=== PATIENT | female | born 2000 | race Two or more races ===

== ENCOUNTER 2020-09-21 14:40 | Observation (INO) | payer MEDICAID ==
[~2020-09-21] VITALS: Ht 160 cm; Wt 94.3 kg
[2020-09-21] MEDS ORDERED: PREN-96 PO (14:56)
[2020-09-21] MEDS ORDERED: FERR-20 PO (14:56)
== END 2020-09-21 15:34 | disposition home or self-care (01) ==
LOC: LDRP 14:40
PROVIDERS: ADMIT Specialist; ATTEND Specialist
DX: O99.891 Other specified diseases and conditions complicating pregnancy (principal); Z3A.36 36 weeks gestation of pregnancy
CPT/HCPCS: 59025; 81002; G0378

== ENCOUNTER 2020-10-02 19:41 | Observation (INO) | payer MEDICAID ==
[~2020-10-02 19:41] MED LIST: FERR-20 PO; PREN-96 PO
== END 2020-10-02 21:15 | disposition home or self-care (01) ==
LOC: UNDOADMOB 19:41 → LDRP 19:41 → UNDODISOB 21:15
PROVIDERS: ADMIT Obstetrics & Gynecology; ATTEND Obstetrics & Gynecology
DX: O36.8130 Decreased fetal movements, third trimester, not applicable or unspecified (principal); O99.891 Other specified diseases and conditions complicating pregnancy; M54.5 Low back pain; Z3A.38 38 weeks gestation of pregnancy; Z87.442 Personal history of urinary calculi
CPT/HCPCS: 59025; 81002; 94760; G0378

== ENCOUNTER 2020-10-14 10:37 | Observation (INO) | payer MEDICAID | END 2020-10-14 14:02 | disposition home or self-care (01) | LOC: LDRP 10:37 | PROVIDERS: ADMIT Obstetrics & Gynecology; ATTEND Obstetrics & Gynecology | DX: O26.893 Other specified pregnancy related conditions, third trimester (principal); M54.5 Low back pain; R10.30 Lower abdominal pain, unspecified; Z3A.40 40 weeks gestation of pregnancy | CPT/HCPCS: 59025; 76818; 81002; G0378 ==

== ENCOUNTER 2020-10-14 20:13 | Observation (INO) | payer MEDICAID | END 2020-10-14 21:30 | disposition home or self-care (01) | LOC: LDRP 20:13 | PROVIDERS: ADMIT Obstetrics & Gynecology; ATTEND Obstetrics & Gynecology | DX: O99.891 Other specified diseases and conditions complicating pregnancy (principal); M54.5 Low back pain; R10.30 Lower abdominal pain, unspecified; Z3A.40 40 weeks gestation of pregnancy | CPT/HCPCS: 59025; 81002; G0378 ==

== ENCOUNTER 2020-10-15 01:27 | Inpatient (IN) | payer MEDICAID ==
[~2020-10-15] VITALS: Ht 160 cm; Wt 72.6 kg
[2020-10-15] MEDS ORDERED: BUTORPHANOL TARTRATE 2 MG/1 ML VIAL IV ONE ×2 (02:00→07:45)
[2020-10-15] MEDS ORDERED: LACTATED RINGER'S 1,000 ML IV ONE (02:00)
[2020-10-15 03:17] LABS: Urine Bacteria FEW /hpf (None Seen); Urine Blood Negative /uL (Negative); Urine Specific Gravity 1.011 (1.001-1.035); Urine WBC 2 /hpf (0 - 5)
[2020-10-15] MEDS ORDERED: LIDOCAINE 2%HCL (LOCAL ANESTH.) INJ 20ML MDV IJ ONE (05:00)
[2020-10-15] MEDS ORDERED: LACTATED RINGER'S 1,000 ML IV SCH (05:00)
[2020-10-15] MEDS ORDERED: PHISODERM TOP SOLN 240ML BTL TOP PRN (05:00)
[2020-10-15] MEDS ORDERED: BUTORPHANOL TARTRATE 2 MG/1 ML VIAL IM ONE (07:15)
[2020-10-15 07:52] LABS: Basophils # (auto) 0 10 ^3/uL (0-0.2); Eosinophils # (auto) 0 10 ^3/uL (0-0.8); Lymphocytes # (auto) 1.4 10 ^3/uL (0.4-5.4); Monocytes # (auto) 0.7 10 ^3/uL (0-1.3); Neutrophils # (auto) 13.4 10 ^3/uL (1.6-8.6); Red Cell Distribution Width 15.9 % (11.8-14.3)
[2020-10-15 07:54] LABS: Basophils % (auto) 0.3 % (0.0-2.0); Eosinophils % (auto) 0.1 % (0.0-7.0); Hematocrit 39.5 % (36.0-46.0); Hemoglobin 13.1 g/dL (12.2-16.2); Lymphocytes % (auto) 9.2 % (10.0-50.0); Mean Corpuscular Hemoglobin 26.5 pg (28.0-32.0); Mean Corpuscular Hgb Conc. 33.2 g/dL (32.0-36.0); Mean Corpuscular Volume 79.9 fL (80.0-100.0); Monocytes % (auto) 4.6 % (0.0-12.0); Neutrophils % (auto) 85.8 % (37.0-80.0); Nucleated Red Blood Cells % 0.1 %; Platelet Count (auto) 279 10^3/uL (140-450); Red Blood Cells 4.94 10^6/uL (4.0-5.20); White Blood Cell 15.5 10^3/uL (4.4-10.8)
[2020-10-15 08:07] LABS: INR 0.97 (0.9-1.15); Partial Thromboplastin Time 25.3 sec (23.0-31.2)
[2020-10-15] MEDS ORDERED: LACT. RINGERS/OXYTOCIN 20UNITS 1,000 ML IV ONE (08:15)
[2020-10-15 08:17] LABS: Albumin 2.6 g/dL (3.4-5.0); Calcium 8.6 mg/dL (8.5-10.1); Potassium 3.6 mmol/L (3.5-5.1)
[2020-10-15 08:21] LABS: BUN/Creatinine Ratio 9.7; Bilirubin, Total 0.3 mg/dL (0.2-1.0); Total Protein 7.3 g/dL (6.4-8.2)
[2020-10-15] MEDS ORDERED: LIDOCAINE HCL 2 %PF INJ 10ML AMP IJ ONE (08:45)
[2020-10-15] MEDS ORDERED: ePHEDrine SULFATE 50 MG/ML AMP IV ONE (08:45)
[2020-10-15] MEDS ORDERED: fentaNYL CITRATE 100 MCG/2 ML VL IV ONE (08:45)
[2020-10-15] MEDS ORDERED: LACTATED RINGER'S 500 ML IV ONE (08:45)
[2020-10-15] MEDS ORDERED: ROPIVACAINE HCL 200 ML EPI SCH ×2 (08:45→10:15)
[2020-10-15] MEDS ORDERED: NALOXONE HCL 0.4 MG/ML VIAL IV ONE (08:45)
[2020-10-15] MEDS ORDERED: TERBUTALINE SULFATE 1 MG/ML 1ML VIAL SC ONE (10:15)
[2020-10-15] MEDS: SODIUM CHLORIDE 0.9% 1,000 ML IV SCH ×2 (10:15→18:15)
[2020-10-15] MEDS ORDERED: LACT. RINGERS/OXYTOCIN 20UNITS 1,000 ML IV SCH (10:15)
[2020-10-15] MEDS: LACTATED RINGER'S 1,000 ML IV SCH ×4 (10:15→18:15)
[2020-10-15] MEDS: IBUPROFEN 600 MG TAB PO PRN (16:22)
[2020-10-15 18:42] VITALS: BP 116/62
[2020-10-15 23:22] VITALS: BP 106/54
[2020-10-16] MEDS: WITCH HAZEL-GLYCERIN PAD TOP PRN ×2 (01:42→12:49)
[2020-10-16] MEDS: DERMOPLAST 60ML BOTTLE TOP PRN ×2 (01:42→12:49)
[2020-10-16] MEDS: IBUPROFEN 600 MG TAB PO PRN ×2 (01:42→12:48)
[2020-10-16 03:18] VITALS: BP 114/56
[2020-10-16 05:09] LABS: RPR Non Reactive (Non Reactive)
[2020-10-16 06:30] VITALS: BP 102/55
[2020-10-16 11:25] VITALS: BP 124/69
[2020-10-16] MEDS ORDERED: MEASLES, MUMPS & RUBELLA VAC(MMRII) 0.5ML SC ONE (14:00)
[2020-10-16 14:53] VITALS: BP 123/75
== END 2020-10-16 14:56 | disposition home or self-care (01) | DRG 560 ==
LOC: LDRP 01:27 → OBSVTOIN 04:56 → LDRP 05:16
PROVIDERS: ADMIT Obstetrics & Gynecology; ATTEND Obstetrics & Gynecology
PROC: 10D07Z6 Extraction of Products of Conception, Vacuum, Via Natural or Artificial Opening (ICD-10-PCS; principal; 2020-10-15)
PROC: 0W8NXZZ Division of Female Perineum, External Approach (ICD-10-PCS; 2020-10-15)
PROC: 3E0R3BZ Introduction of Anesthetic Agent into Spinal Canal, Percutaneous Approach (ICD-10-PCS; 2020-10-15)
PROC: 00HU33Z Insertion of Infusion Device into Spinal Canal, Percutaneous Approach (ICD-10-PCS; 2020-10-15)
DX: O77.0 Labor and delivery complicated by meconium in amniotic fluid (principal); Z37.0 Single live birth; Z3A.40 40 weeks gestation of pregnancy; Z87.442 Personal history of urinary calculi; Z20.828 Contact with and (suspected) exposure to other viral communicable diseases
CPT/HCPCS: 36415; 59025; 59409; 62282; 80053; 81001; 85025; 85610; 85730; 86592; 86850; 86900; 86901; 87426; 94760; 96360; 96361; 96372; 96374; G0378; J2590